=== PATIENT | male | born 1990 | race Hispanic/Latino ===

== ENCOUNTER 2017-01-05 07:16 | Emergency (ER) | payer OTHER ==
[~2017-01-05] VITALS: Ht 160 cm; Wt 68.2 kg
[2017-01-05] MEDS ORDERED: VITA500C14 PO (07:22)
--- NOTE | 2017-01-05 08:23 | REP ---
Right ankle four views: There is significant soft tissue edema laterally. There is no fracture or dislocation. Mineralization joint spaces are normal. No calcifications or foreign bodies. Signed by Doron Mosqueda MD 01/05/2017 08:15 A
[2017-01-05] MEDS ORDERED: IBUP-1022 PO (08:33)
[2017-01-05 08:49] VITALS: BP 129/67
== END 2017-01-05 08:49 | disposition home or self-care (01) ==
LOC: M ED 07:16
DX: S99.911A Unspecified injury of right ankle, initial encounter (principal); X50.1XXA Overexertion from prolonged static or awkward postures, initial encounter; Y92.9 Unspecified place or not applicable; Y93.66 Activity, soccer; Y99.9 Unspecified external cause status; Z79.899 Other long term (current) drug therapy